=== PATIENT | female | born 2000 ===

== ENCOUNTER 2020-02-28 16:06 | Emergency (ER) | payer MEDICAID ==
[~2020-02-28] VITALS: Ht 162.6 cm; Wt 42.9 kg
--- NOTE | 2020-02-28 16:36 | NUR ---
THIS IS A 20 YO F W/ C/O SORETHROAT AND FEVERS AT HOME. PT REPORTS SEEN AT [facility] YESTERDAY FOR COVID TEST WHICH IS PENDING. PT RESTING ON GURNEY W/ CALL LIGHT IN REACH AND SIDE RAILS UPX2. FAMILY AT BEDSIDE. RESP EVEN AND UNLABORED, ALEX.
[2020-02-28] MEDS ORDERED: IBUPROFEN 600 MG TABLET ONE (16:48)
[2020-02-28] MEDS ORDERED: DEXAMETHASONE 4 MG TABLET ONE ×2 (16:48→16:50)
--- NOTE | 2020-02-28 16:54 | NUR ---
RAD IN ROOM.
[2020-02-28] MEDS ORDERED: IBUPROFEN 200 MG TABLET PO ONE (17:00)
[2020-02-28] MEDS ORDERED: DEXAMETHASONE 4 MG TABLET PO ONE (17:00)
[2020-02-28 17:30] LABS: RAPID INFLUENZA A Negative (Negative); RAPID INFLUENZA B Negative (Negative)
[2020-02-28 17:38] VITALS: BP 123/85
--- NOTE | 2020-02-28 17:39 | NUR ---
ALL TESTS RESULTED. PT IS UP FOR RECHECK AT THIS TIME. VSS, ADOLFON.
== END 2020-02-28 18:19 | disposition home or self-care (01) ==
LOC: ED 16:53
DX: J06.9 Acute upper respiratory infection, unspecified (principal); J18.9 Pneumonia, unspecified organism; J45.901 Unspecified asthma with (acute) exacerbation
CPT/HCPCS: 71045; 87081; 87400; 87880; 99284